=== PATIENT | female | born 1935 | race Caucasian/White ===

== ENCOUNTER → 2017-01-01 | Outpatient (CLI) | payer OTHER, MEDICARE ==
[~2017-01-01] VITALS: Ht 152.4 cm; Wt 65.3 kg
[~2017-01-01] MED LIST: ALBUTEROL SUL5 MG/M1; AMBIEN 5 MG TABL5 M1 PO; AMOXICILLIN 50500 MG PO; ASPIRIN81 M2 PO; AUGMENTIN 875875 MG PO; B COMPLETE1 EAC1 PO; BACTRIM DS TAB1 EAC1 PO; BACTRIM DS TAB1 EACH PO; BACTROBAN CREAM30 G1; BILBERRY1 EAC1 PO; BIOTIN2500 MCG PO; CALCIUM + VIT1 EACH; CALCIUM 600+D1 EAC5 PO; CARDIZEM CD120 MG PO; CELEXA 10 MG TA10 MG; CELEXA 20 MG TA20 M1 PO; CIPRO500 MG PO; CO Q-1010 MG; CO Q-10100 MG PO; COLESTIPOL HCL1 G1 PO; CYCLOBENZAPRINE5 MG PO; ELIQUIS5 MG PO; FLEXERIL; FLONASE16 GM NASAL; HYDROCODONE-AP1 EAC6 PO; HYZAAR 100-12.1 EACH; KEFLEX500 M1 PO; KEFLEX500 MG PO; LANTUS SUBQ; LEVEMIR100 UNIT/1 SUBQ; LEVOTHYROXIN0.112 M1 PO; LEVOTHYROXINE 0.15MG PO; LEXAPRO 10 MG T10 M1 PO; LORTAB 5-325 M1 EACH PO; LOSARTAN-HCTZ1 EAC1 PO; MELATONIN3 MG PO; MOTION RELIEF25 MG PO; NORVASC10 MG PO; NORVASC5 MG PO; NOVOLOG100 UNIT/1 SUBQ; NOVOLOG100 UNIT/M SUBQ; OXYCODONE HCL 55 MG PO; PHENAZOPYRIDIN200 M2 PO; PREDNISONE 10 M10 MG PO; PREMARIN0.625 MG PO; PRILOSEC 10MG C10 M1; PRILOSEC 20 MG20 MG PO; PROAIR HFA8.5 GM INH; PROPAFENONE 15150 MG PO; PYRIDIUM100 M1 PO; RED YEAST RICE600 M1 PO; SPIRIVA INH; SYNTHROID200 MCG PO; TESSALON PERLE100 MG PO; TOPROL XL25 MG PO; TRAMADOL 50 MG50 MG PO; TRIAMCINOLONE 080 G3; TUMS PO; UNICOMPLEX M TA1 TA1 PO; VITAMIN D1000 UNIT PO
--- NOTE | ~2017-01-01 | P ---
[facility] [address] [place] [address] PROCEDURE REPORT Name: NEREIDA LUBIN Room #: REG [facility]#: [id number] Admission: 01/01/17 Attend Phys: Los Higuera MD Discharge: Date of : 39 Report #: [id number] THIS REPORT FOR: //name// CC: RYLAN Higuera BRIEF HISTORY: The patient is a 81-year-old woman who was recently seen in the office who has had problems with abdominal pain. She also has had diarrhea. She has had a previous gastric sleeve surgery. PREOPERATIVE DIAGNOSES: Abdominal pain, diarrhea, and previous gastric sleeve surgery. POSTOPERATIVE DIAGNOSES: 1. Moderate antral gastritis, nonerosive. 2. Small hiatus hernia. 3. Changes in the stomach consistent with prior gastric sleeve surgery. MEDICATIONS: Deep sedation with propofol per anesthesia. SPECIMENS: 1. Biopsies of the small-bowel, rule out celiac disease. 2. Biopsy of gastritis. ESTIMATED BLOOD LOSS: 3 mL. PROCEDURE: EGD with biopsy. FINDINGS: Prior to propofol sedation, the procedure of upper endoscopy discussed with the patient as well as potential risks, benefits, and complications. She indicates she understands and desires to proceed. With the patient in left lateral decubitus position, the [employer] video endoscope was inserted in the cervical esophagus under direct vision without difficulty. Examination of this organ through its entire length revealed normal esophageal mucosa. She had normal mucosa down the squamocolumnar junction. The squamocolumnar junction was normal. A small 2-3 cm hiatus hernia was seen. The mucosa and hernia was unremarkable. Scope was advanced into the stomach, was examined on end view as well as retroflexed views. She was noted to have moderate antral gastritis. No ulcers or erosions were seen. No obstructing lesions were seen. No retained liquids and solids were seen within the stomach. On further examination of the stomach on end view as well as retroflexed views, she was noted to have changes in the body of the stomach consistent with previous gastric sleeve surgery. The findings were unremarkable. There were no evidence of ulcers or other lesions related to previous surgery. Pylorus was normal. Duodenal bulb was normal. Duodenal sweep down at third portion was [facility] [address] [place] [address] PROCEDURE REPORT Name: NEREIDA LUBIN Room #: REG [facility].#: [id number] Admission: 01/01/17 Attend Phys: oLs Higuera MD Discharge: Date of : 39 Report #: [id number] normal. At that point, the scope was slowly withdrawn and careful circumferential views confirmed the above findings. The patient tolerated the procedure well. CONDITION OF THE PATIENT UPON DISCHARGE: Following procedure, the patient drowsy, aroused, conversant and will be discharged home when fully ambulatory. INSTRUCTIONS TO THE PATIENT AND FAMILY AT THE TIME OF DISCHARGE: We will follow up on biopsies, which were obtained today. In the meantime, she may continue the Colestid. She reports that she is improved with the use of Colestid. She may adjust the dose as needed to control her diarrhea. In addition, she reports her abdominal pain has improved with the Colestid as well. We will follow up on biopsies and make further recommendations. If symptoms persist, may need to consider further etiology to diurese especially in the diabetic patient including small intestinal bacterial overgrowth or gastrointestinal motility disorders. She will return to care of Dr. Chavez and return to see me as needed. By: 1214 [id number] Los Higuera MD /nt
--- NOTE | ~2017-01-01 | S ---
[place]eth [place] [address] SURGICAL PATH RPT PROCEDURE Name: DIONE MILLER Room #: REG [facility]..#: [id number] Admission: 01/01/17 Date of : 39 Discharge: Report #: [id number] Path Case #: [id number] PATHOLOGY REPORT COLLECTION DATE: 01/01/2017 RECEIVED DATE: 01/02/2017 SUBMITTING PHYS: Dr. Los Higuera OTHER PHYS: Dr. Erika Chavez SPECIMEN(S) RECEIVED: A.Duodenum B.Gastric body * * * * * * * * * * * * FINAL DIAGNOSIS: A. Duodenum, "duodenum," biopsy: - Mild non-specific chronic inflammation. - There is no evidence of acute cryptitis, granulomas, adenomatous change, sprue-like changes, or malignancy. B. Gastric, "gastric," biopsy: - Mild chronic reactive gastropathy. - The immunoperoxidase stain for Helicobacter pylori is negative. (SHA:mgr; 01/05/2017) PATHOLOGIST: Elmer Guillen M.D. REPORT ELECTRONICALLY SIGNED BY: Elmer Guillen M.D. DATE/TIME: 01/05/2017 13:45 * * * * * * * * * * * * GROSS PATHOLOGY: A. Received in formalin labeled "anali Meier, R/O celiac," are four segments of haider soft tissue measuring 1.2 x 1.0 x 0.2 cm in aggregate dimensions and ranging from 0.3 to 0.6 cm in maximum dimension. The specimen is submitted entirely in cassette A1. B. Received in formalin labeled "Dione Miller, gastric body, R/O gastritis," are five segments of haidre soft tissue measuring 1.2 x 1.2 x 0.3 cm in aggregate dimensions and ranging from 0.3 to 0.8 cm in maximum dimension. The specimen is submitted entirely in cassette B1. (CAA; 01/02/2017) CLINICAL HISTORY: Pre-op diagnosis: Abdominal pain, diarrhea (history of diabetes) Post-op diagnosis: Gastritis, hiatal hernia, previous gastric sleeve INITIAL CPT CODE(S): [address] [address] SURGICAL PATH RPT PROCEDURE Name: DIONE MILLER Room #: REG [facility].#: [id number] Admission: 01/01/17 Date of : 39 Discharge: Report #: [id number] Path Case #: [id number] A; [id number] B; [id number], [id number] Professional services performed by [facility] at [address], [place] [address] Technical services performed by [facility] at [address] [place] [address], [facility] [address] [address]. [facility] [address] [place] [address] PHONE: [phone] DIRECTOR: Josef Ott M.D. * * * END OF REPORT * * *
== END | disposition home or self-care (01) ==
LOC: GI 09:48
DX: K31.89 Other diseases of stomach and duodenum (principal); K29.80 Duodenitis without bleeding; K44.9 Diaphragmatic hernia without obstruction or gangrene; G47.33 Obstructive sleep apnea (adult) (pediatric); I10 Essential (primary) hypertension; E78.5 Hyperlipidemia, unspecified; E11.9 Type 2 diabetes mellitus without complications; I48.91 Unspecified atrial fibrillation; E03.9 Hypothyroidism, unspecified; Z90.710 Acquired absence of both cervix and uterus; Z90.3 Acquired absence of stomach [part of]; Z90.49 Acquired absence of other specified parts of digestive tract; Z98.890 Other specified postprocedural states; Z98.41 Cataract extraction status, right eye; Z98.42 Cataract extraction status, left eye; Z96.653 Presence of artificial knee joint, bilateral; Z79.4 Long term (current) use of insulin
CPT/HCPCS: 62110; 62900